=== PATIENT | female | born 1980 | race Two or more races ===

== ENCOUNTER 2024-12-14 11:59 | Emergency (ER) | payer MEDICAID, OTHER ==
[~2024-12-14] VITALS: Ht 167.6 cm; Wt 71.7 kg
[~2024-12-14 11:59] MED LIST: Aspirin PO; HYDR-3974 PO; PANT40TA2 PO
[2024-12-14] MEDS ORDERED: ONDANSETRON HCL/PF 4 MG/2 ML VIAL ONE (12:26)
[2024-12-14] MEDS ORDERED: MAG HYDROX/AL HYDROX/SIMETH 30 ML UDC ONE (12:27)
[2024-12-14] MEDS ORDERED: FAMOTIDINE/PF INJ 20 MG/2 ML VIAL IV ONE (12:27)
[2024-12-14] MEDS ORDERED: MORPHINE SULFATE INJ 4 MG/ML DISP.SYRIN ONE (12:27)
[2024-12-14 12:30] LABS: PLATELET COUNT (AUTO) 329 K/uL (150-450); RED BLOOD CELL COUNT(AUTO) 4.32 MIL/uL (4.0-5.2); RED CELL DISTRIBUTION WIDTH 15.8 % (11.5-15.0); WHITE BLOOD COUNT (AUTO) 6.1 K/uL (4.3-11.0)
[2024-12-14 12:33] LABS: CALCIUM, SERUM 8.8 mg/dL (8.5-10.1); CREATININE 0.8 mg/dL (0.6-1.3); SODIUM SERUM 139.0 mmol/L (136-145); UREA NITROGEN, BLOOD 14.0 mg/dL (7-18)
[2024-12-14 12:40] LABS: ASPARTATE AMINOTRANSFERASE 58.0 U/L (15-37); TOTAL PROTEIN, SERUM 7.8 g/dL (6.4-8.2)
[2024-12-14] MEDS: IV NS 0.9% 1,000 ML BAG IV ONE (12:42)
[2024-12-14] MEDS: MORPHINE SULFATE INJ 2 MG/ML DISP.SYRIN IV ONE (12:43)
[2024-12-14] MEDS: FAMOTIDINE/PF INJ 20 MG/2 ML VIAL IV ONE (12:44)
[2024-12-14] MEDS: ONDANSETRON HCL/PF 4 MG/2 ML VIAL IVP ONE (12:44)
[2024-12-14] MEDS: MAG HYDROX/AL HYDROX/SIMETH 30 ML UDC PO ONE (12:44)
[2024-12-14] MEDS ORDERED: OMEP20TA20 PO (13:46)
[2024-12-14 14:12] VITALS: BP 113/74; TEMP 98.2; O2SAT 99
== END 2024-12-14 14:14 | disposition home or self-care (01) ==
LOC: ER 12:06
DX: R10.13 Epigastric pain (principal); R10.2 Pelvic and perineal pain; Z79.899 Other long term (current) drug therapy; Z87.19 Personal history of other diseases of the digestive system; Z90.49 Acquired absence of other specified parts of digestive tract
CPT/HCPCS: 99285; 74176; 96374; 76705; 96375; 96361; 93005; 85025; 80048; 83690; 80076; 36415; 84702; J2270; J1308; J2405; J7030